=== PATIENT | female | born 1960 | race Caucasian/White ===

== ENCOUNTER 2017-08-12 11:04 | Emergency (ER) | payer OTHER, MEDICAID ==
[2017-08-12 11:40] VITALS: RESP 18; TEMP 99.1
--- NOTE | 2017-08-12 12:09 | ED PDOC ---
HPI: CCC, URI, Sore Throat Time Seen by Provider: 08/12/17 11:22 Chief Complaint (Nursing): Cough, Cold, Congestion Chief Complaint (Provider): Cough History Per: Patient History/Exam Limitations: no limitations Onset/Duration Of Symptoms: Days (x1 month), Worse Since (x3 days) Current Symptoms Are (Timing): Still Present Associated Symptoms: Fever, Cough (productive), Sputum (white) Ear Symptoms: Bilateral: None Additional Complaint(s): Edna Gillis is a 56 year old female, with a past medical history of HIV, who presents to the emergency department complaining of a worsening productive cough with white sputum, and fever onset for 1 month. Patient states the cough has worsened in the last 3 days, which prompted her visit to the ED. Last time she measured her temperature it was 101.7. She saw an urgent care clinic at [facility] who prescribed her Zithromax and Promethazine. Patient is allergic to Tylenol. She denies any nausea, vomit, or abdominal pain. No further medical complaints. PMD: None provided. Past Medical History Reviewed: Historical Data, Nursing Documentation, Vital Signs Vital Signs: Last Vital Signs Temp 99.1 F 08/12/17 11:35 Pulse 87 08/12/17 18:16 Resp 18 08/12/17 18:16 BP 122/70 08/12/17 18:16 Pulse Ox 98 08/12/17 18:16 - Medical History PMH: HIV, Hypercholesterolemia, Osteoporosis - Family History Family History: States: Unknown Family Hx - Social History Current smoker - smoking cessation education provided: No Alcohol: None Drugs: Denies - Home Medications Home Medications: Ambulatory Orders Medication Instructions Recorded Albuterol HFA [Ventolin HFA 90 2 puff IH Q4H PRN 08/12/17 mcg/actuation (8 g)] Alendronate [Fosamax] 70 mg PO WE 08/12/17 Azithromycin [Z-Reece] 250 mg PO ASDIR 08/12/17 Azithromycin [Zithromax] 250 mg PO DAILY #4 tab 08/12/17 Emtricitab/Rilpiviri/Tenof Ala 1 tab PO DAILY 08/12/17 [Odefsey Tablet] Multivitamin [Multi-Vitamin Daily] 1 tab PO DAILY 08/12/17 Promethazine [Phenergan Syrup] 10 ml PO Q6H PRN 08/12/17 - Allergies Allergies/Adverse Reactions: Allergies Allergy/AdvReac Type Severity Reaction Status Date / Time acetaminophen [From Tylenol] Allergy PAIN Verified 08/12/17 11:34 Review of Systems ROS Statement: Except As Marked, All Systems Reviewed And Found Negative Constitutional: Positive for: Fever Respiratory: Positive for: Cough (productive), Sputum (white) Gastrointestinal: Negative for: Nausea, Vomiting, Abdominal Pain Physical Exam - Reviewed Nursing Documentation Reviewed: Yes Vital Signs Reviewed: Yes - Physical Exam Appears: Positive for: Well, Non-toxic, No Acute Distress Head Exam: Positive for: ATRAUMATIC, NORMAL INSPECTION, NORMOCEPHALIC Skin: Positive for: Normal Color, Warm, Dry Eye Exam: Positive for: EOMI, Normal appearance, PERRL ENT: Positive for: Normal ENT Inspection Neck: Positive for: Normal, Painless ROM, Supple Cardiovascular/Chest: Positive for: Regular Rate, Rhythm. Negative for: Murmur Respiratory: Positive for: Normal Breath Sounds. Negative for: Respiratory Distress Gastrointestinal/Abdominal: Positive for: Normal Exam, Bowel Sounds, Soft. Negative for: Tenderness, Guarding, Rebound Back: Positive for: Normal Inspection. Negative for: L CVA Tenderness, R CVA Tenderness Extremity: Positive for: Normal ROM. Negative for: Deformity, Swelling Neurologic/Psych: Positive for: Alert, Oriented - Laboratory Results Result Diagrams: 08/12/17 12:57 08/12/17 12:57 - ECG O2 Sat by Pulse Oximetry: 97 (RA) Pulse Ox Interpretation: Normal Medical Decision Making Medical Decision Making: Initial Impression: Cough Initial Plan: --VBG Shock Panel --EKG --Comp Metabolic Panel --CBC w/ differential --D Dimer --PTT --PT --Chest Two views (PA/LAT) [RAD] --Duoneb 3 ml INH --Blood culture --Influenza A B --Urinalysis --Angio Chest PE Protocol [CT] --reevaluation 1309 chest x-ray IMPRESSION: No active disease 14[address] IMPRESSION: Unremarkable CT pulmonary angiogram. No pulmonary embolus. Bilateral lower lobe and anteromedial left upper lobe patchy consolidations. Scribe Attestation: Documented by Jacobo Colon, acting as a scribe for Christen Olea MD Provider Scribe Attestation: All medical record entries made by the Scribe were at my direction and personally dictated by me. I have reviewed the chart and agree that the record accurately reflects my personal performance of the history, physical exam, medical decision making, and the department course for this patient. I have also personally directed, reviewed, and agree with the discharge instructions and disposition. Disposition - Clinical Impression Clinical Impression: Pneumonia - Disposition Referrals: Jassi Traylor MD [Family Provider] - Disposition: Routine/Home Disposition Time: 17:06 Condition: STABLE Prescriptions: Azithromycin [Zithromax] 250 mg PO DAILY #4 tab Instructions: Pneumonia (ED) Forms: [facility] (Mosotho), [facility] ED School/Work Excuse Print Language: TRINIDADIAN
[2017-08-12] MEDS ORDERED: Albuterol-Ipratrop 3 mg / 0.5 (3 ml) UD ONE (12:48)
[2017-08-12] MEDS: Albuterol-Ipratrop 3 mg / 0.5 (3 ml) UD INH STA (12:52)
[2017-08-12 12:55] LABS: VENOUS BLOOD GAS BASE EXCESS 4.5 mmol/L (0.0-2.0); VENOUS BLOOD GAS PCO2 49 mmHg (40-60)
[2017-08-12 13:03] LABS: BASO % 0.5 % (0.0-2.0); EOS # 0.1 K/uL (0.0-0.7); EOS % 2.3 % (0.0-4.0); HEMATOCRIT 39.6 % (34.0-47.0); LYMPH # 1.2 K/uL (1.0-4.3); LYMPH % 21.8 % (20.0-40.0); MEAN CELL VOLUME 89.4 fl (81.0-99.0); MEAN CORPUSCULAR HEMOGLOBIN 29.8 pg (27.0-31.0); MEAN CORPUSCULAR HGB CONC 33.4 g/dL (33.0-37.0); MEAN PLATELET VOLUME 9.1 fl (7.2-11.7); MONO % 17.8 % (0.0-10.0); NEUT # 3.2 K/uL (1.8-7.0); NEUT % 57.6 % (50.0-75.0); RED CELL DISTRIBUTION WIDTH 13.5 % (11.5-14.5); WHITE BLOOD COUNT 5.6 K/uL (4.8-10.8)
--- NOTE | 2017-08-12 13:11 | RAD ---
HISTORY: Cough COMPARISON: 03/18/2017 TECHNIQUE: Chest PA and lateral FINDINGS: LUNGS: No active pulmonary disease. PLEURA: No significant pleural effusion identified. No pneumothorax apparent. CARDIOVASCULAR: Normal. OSSEOUS STRUCTURES: No significant abnormalities. VISUALIZED UPPER ABDOMEN: Normal. OTHER FINDINGS: None. IMPRESSION: No active disease.
[2017-08-12 13:14] LABS: ALB/GLOB RATIO 1.2 (1.0-2.1); ALKALINE PHOSPHATASE 63 U/L (38-126); ALT/SGPT 38 U/L (9-52); AST/SGOT 30 U/L (14-36); BILIRUBIN,TOTAL 0.5 mg/dl (0.2-1.3); BLOOD UREA NITROGEN 13 mg/dl (7-17); CALCIUM 8.7 mg/dL (8.4-10.2); CARBON DIOXIDE 29 mmol/L (22-30); CHLORIDE 105 mmol/L (98-107); GFR AFRICAN-AMERICAN > 60; GLUCOSE,RANDOM 75 mg/dL (65-105); POTASSIUM 3.6 MMOL/L (3.6-5.0); SODIUM 146 mmol/l (132-148); TOTAL PROTEIN 7.1 G/DL (6.3-8.2)
[2017-08-12 13:19] LABS: PARTIAL THROMBOPLASTIN TIME 27.7 Seconds (25.6-37.1)
[2017-08-12] MEDS ORDERED: Sodium Chloride 0.9% 50 ML IV ONE (13:43)
[2017-08-12] MEDS ORDERED: Iodixanol 320 MG/ML 100 ML BOTTLE IV ONE (13:43)
--- NOTE | 2017-08-12 14:23 | CT ---
PROCEDURE: CT Chest with contrast (Pulmonary Angiogram) HISTORY: SOB, HIV COMPARISON: None available. TECHNIQUE: Axial computed tomography images were obtained of the chest in the pulmonary arterial phase of enhancement. Coronal and sagittal reformatted images were created and reviewed. Intravenous contrast dose: 95 mL Visipaque 320 Radiation dose: Total exam DLP = 316.3 mGy-cm. This CT exam was performed using one or more of the following dose reduction techniques: Automated exposure control, adjustment of the mA and/or kV according to patient size, and/or use of iterative reconstruction technique. FINDINGS: PULMONARY ARTERIES: Unremarkable. No pulmonary embolism. AORTA: No acute findings. No thoracic aortic aneurysm. LUNGS: Bilateral lower lobe and anteromedial left upper lobe patchy consolidations. PLEURAL SPACES: Unremarkable. No effusion or pneuomothorax. HEART: Enlarged. No significant pericardial effusion. LYMPH NODES: Prominent shotty mediastinal lymph nodes which do not meet strict CT criteria for adenopathy. BONES, CHEST WALL: Unremarkable. No fracture or destructive lesion OTHER FINDINGS: Unremarkable. IMPRESSION: Unremarkable CT pulmonary angiogram. No pulmonary embolus. Bilateral lower lobe and anteromedial left upper lobe patchy consolidations. Findings conveyed to Dr. Olea by Dr. Anderson at 2:20 p.m. on 08/12/2017.
[2017-08-12] MEDS ORDERED: Azithromycin 500 MG IV IVPB ONE (15:02)
[2017-08-12] MEDS: Azithromycin 500 MG in Sodium Chloride 0.9% 250 ML IV STA (15:10)
[2017-08-12] MEDS ORDERED: cefTRIAXone IV 1 gm in Dextros 50 ML IVPB ONE (16:25)
[2017-08-12] MEDS: cefTRIAXone IV 1 gm in Dextros 50 ML IVPB STA (16:28)
[2017-08-12 18:17] VITALS: BP 122/70; PULSE 87
--- NOTE | 2017-08-13 07:50 | CARD ---
APPROVED REPORT EKG Measurement Heart [id number] <Conclusion> Sinus tachycardia Nonspecific T wave abnormality Abnormal ECG
[2017-08-16 11:50] VITALS: O2SAT 97
== END 2017-08-12 18:00 | disposition home or self-care (01) ==
LOC: H.ER 11:04
DX: J18.9 Pneumonia, unspecified organism (principal); E78.00 Pure hypercholesterolemia, unspecified; M81.0 Age-related osteoporosis without current pathological fracture
CPT/HCPCS: 71020; 71275; 80053; 82803; 85025; 85378; 85610; 85730; 87040; 87804; 93005; 94640; 96365; 96367; 99281; J0456; J0696; Q9967

== ENCOUNTER 2017-11-17 11:27 | Emergency (ER) | payer MEDICARE ==
[2017-11-17 11:31] VITALS: BMI 26.5
[2017-11-17 11:32] VITALS: BP 143/88; PULSE 89; RESP 17; TEMP 98.9; O2SAT 99
--- NOTE | 2017-11-17 13:03 | ED PDOC ---
HPI: Eye Injury/Pain Time Seen by Provider: 11/17/17 12:25 Chief Complaint (Nursing): Eye Problem Chief Complaint (Provider): Eye pain History Per: Patient History/Exam Limitations: no limitations Onset/Duration Of Symptoms: Days (x25) Current Symptoms Are (Timing): Still Present Quality: "Pain" Associated Symptoms: Pain. denies: Discharge From Eye, Other (fever, headache) Additional Complaint(s): Edna Gillis is a 56 year old female, with a past medical history of cataract surgery in right eye x25 days ago, who presents to the emergency department complaining of right eye pain. Patient reports surgery was done at [facility] at [place] where she was prescribed Ilevro eye drops for pain, prednisolone, and polymyxin eye drop. Patient states she ran out of pain medication and is here due to pain. She called her eye doctor but is not able to see her until this afternoon. She denies any fever, headache, or eye discharge. No further medical complaints. PMD: Sae Rico Past Medical History Reviewed: Historical Data, Nursing Documentation, Vital Signs Vital Signs: Last Vital Signs Temp 98.9 F 11/17/17 11:31 Pulse 89 11/17/17 11:31 Resp 17 11/17/17 11:31 BP 143/88 11/17/17 11:31 Pulse Ox 99 11/17/17 11:31 - Medical History PMH: HIV, Hypercholesterolemia, Osteoporosis - Surgical History Other surgeries: Right eye cataract surgery - Family History Family History: States: Unknown Family Hx - Social History Current smoker - smoking cessation education provided: No Alcohol: None Drugs: Denies - Home Medications Home Medications: Ambulatory Orders Medication Instructions Recorded Albuterol HFA [Ventolin HFA 90 2 puff IH Q4H PRN 08/12/17 mcg/actuation (8 g)] Alendronate [Fosamax] 70 mg PO WE 08/12/17 Azithromycin [Z-Reece] 250 mg PO ASDIR 08/12/17 Azithromycin [Zithromax] 250 mg PO DAILY #4 tab 08/12/17 Emtricitab/Rilpiviri/Tenof Ala 1 tab PO DAILY 08/12/17 [Odefsey Tablet] Multivitamin [Multi-Vitamin Daily] 1 tab PO DAILY 08/12/17 Promethazine [Phenergan Syrup] 10 ml PO Q6H PRN 08/12/17 - Allergies Allergies/Adverse Reactions: Allergies Allergy/AdvReac Type Severity Reaction Status Date / Time acetaminophen [From Tylenol] Allergy PAIN Verified 08/12/17 11:34 Review of Systems ROS Statement: Except As Marked, All Systems Reviewed And Found Negative Constitutional: Negative for: Fever Eyes: Positive for: Pain (right eye). Negative for: Other (eye discharge) Neurological: Negative for: Headache Physical Exam - Reviewed Nursing Documentation Reviewed: Yes Vital Signs Reviewed: Yes - Physical Exam Eye Exam: Positive for: PERRL Comments: GENERAL APPEARANCE: Patient is awake, alert, oriented x 3, in no acute distress. HEENT: (-) facial swelling and erythema, (-) facial blisters. LIDS & LASHES: Normal. PUPILS: Pupils equal and reactive. EOM's: Intact. CONJUNCTIVAE: (+) injection. CORNEA: (-) foreign body, (-) infiltrate. ANTERIOR CHAMBER: (-) foreign body, (-) tear in iris, (-) hyphema. - ECG O2 Sat by Pulse Oximetry: 99 (RA) Pulse Ox Interpretation: Normal Medical Decision Making Medical Decision Making: Initial Impression: Right eye pain [facility] in [place] , called and spoke to Deb, who states that the patient can come in at 2pm for further evaluation by the eye doctor. Patient made aware of plan for discharge and need for follow up with her eye doctor at 2pm at the [place] office. Advised to go to the appointment as soon as she is discharge for further evaluation. Patient states she fully agrees with and understands discharge instructions. States that she agrees with the plan and disposition. Verbalized and repeated discharge instructions and plan. I have given the patient opportunity to ask any additional questions. ~ Scribe Attestation: Documented by Jacobo Colon, acting as a scribe for Erlinda Lagunas PA-C. Provider Scribe Attestation: All medical record entries made by the Scribe were at my direction and personally dictated by me. I have reviewed the chart and agree that the record accurately reflects my personal performance of the history, physical exam, medical decision making, and the department course for this patient. I have also personally directed, reviewed, and agree with the discharge instructions and disposition. Disposition - Clinical Impression Clinical Impression: Acute right eye pain - Patient ED Disposition Is Patient to be Admitted: No Counseled Patient/Family Regarding: Diagnosis, Need For Followup - Disposition Disposition: Other Institution (d/c to [facility] in [place]) Disposition Time: 13:00 Condition: STABLE Additional Instructions: PLEASE GO TO YOUR EYE DOCTOR TODAY. I CALLED FOR YOU AND THE EYE DOCTOR THERE WILL SEE YOU AT 2PM. Instructions: Cataracts (DC) Forms: [facility] (Frisian) Print Language: TELUGU - PA / CODIFIER / Resident Statement MD/DO has reviewed & agrees with the documentation as recorded.
== END 2017-11-17 13:20 | disposition home or self-care (01) ==
LOC: H.ER 11:27
DX: H57.10 Ocular pain, unspecified eye (principal); E78.00 Pure hypercholesterolemia, unspecified; M81.0 Age-related osteoporosis without current pathological fracture